=== PATIENT | male | born 1980 | race African-American/Black ===

== ENCOUNTER 2017-09-24 23:23 | Emergency (ER) | payer SELFPAY ==
[2017-09-25] MEDS ORDERED: ONDANSETRON 4 MG TAB.RAPDIS PO ONE (01:28)
--- NOTE | 2017-09-25 01:30 | ER Document Report ---
ED General - General Chief Complaint: Sore Throat Stated Complaint: SORE THROAT,ABDOMINAL PAIN Time Seen by Provider: 09/25/17 01:21 TRAVEL OUTSIDE OF THE [place] IN LAST 30 DAYS: No - HPI Notes: 36-year-old male who presents with concern for strep throat. He describes several days of cough, sore throat not feeling well. Some associated nausea that he attributes to being exposed to something at work. No current fever. Burning pain, nonradiating. has similar symptoms. No other modifying factors, no other associated symptoms, no other provocative or palliative factors. - Related Data Allergies/Adverse Reactions: No Known Allergies Allergy (Unverified 09/24/17 23:25) Past Medical History - Social History Smoking Status: Never Smoker Family History: Reviewed & Not Pertinent - Medical History Medical History: Negative Review of Systems - Review of Systems Notes: Review of systems as in the history of present illness, otherwise negative. Physical Exam - Vital signs Vitals: Temp Pulse Resp BP Pulse Ox 98.6 F 71 20 152/82 H 96 09/24/17 23:53 09/24/17 23:53 09/24/17 23:53 09/24/17 23:53 09/24/17 23:53 - Notes Notes: This is a well-appearing male who presents with likely viral upper restaurant infection and illness. He has a Centor score of 0 out of 4 making streptococcal pharyngitis unlikely. We will treat him symptomatically with Zofran, prescription for the same, outpatient follow-up. Tylenol as needed. Course - Vital Signs Vital signs: Temp Pulse Resp BP Pulse Ox 98.6 F 71 20 152/82 H 96 09/24/17 23:53 09/24/17 23:53 09/24/17 23:53 09/24/17 23:53 09/24/17 23:53 Discharge - Discharge Clinical Impression: URI (upper respiratory infection) Qualifiers: URI type: unspecified viral URI Qualified Code(s): J06.9 - Acute upper respiratory infection, unspecified Condition: Good Disposition: HOME, SELF-CARE Instructions: Upper Respiratory Illness ([facility]) Prescriptions: Ondansetron [Zofran Odt 4 mg Tablet] 1 - 2 tab PO Q4H PRN #15 tab.rapdis PRN Reason: For Nausea/Vomiting
[2017-09-25 01:42] VITALS: BP 127/85
== END 2017-09-25 01:42 | disposition home or self-care (01) ==
LOC: ER 23:23
DX: J06.9 Acute upper respiratory infection, unspecified (principal); J02.9 Acute pharyngitis, unspecified; R11.0 Nausea
CPT/HCPCS: 99282; S0119

== ENCOUNTER 2018-04-18 07:21 | Emergency (ER) | payer OTHER ==
[2018-04-18] MEDS ORDERED: HYDROCODONE/ACETAMINOPHEN 5-325 MG TABLET PO ONE (08:17)
[2018-04-18] MEDS ORDERED: IBUPROFEN 800 MG TABLET PO ONE (08:17)
--- NOTE | 2018-04-18 08:33 | ER Document Report ---
HPI - HPI Patient complains to provider of: Right hand pain Onset: Other - 2 days Onset/Duration: Persistent Quality of pain: Achy Pain Level: 4 Context: Patient presents complaining of right hand pain for the past 2 days. 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 Patient states that he did accidentally hit his hand on a metal tray on 2 separate episodes 2 days ago. Patient complains of persistent pain. Associated Symptoms: Other - Right hand pain Exacerbated by: Movement Relieved by: Remaining still Similar symptoms previously: No Recently seen / treated by doctor: No - ROS ROS below otherwise negative: Yes Systems Reviewed and Negative: Yes All other systems reviewed and negative - NEURO Neurology: DENIES: Weakness - MUSCULOSKELETAL Musculoskeletal: REPORTS: Extremity pain - right wrist - DERM Skin Color: Normal Skin Problems: None Past Medical History - General Information source: Patient - Social History Smoking Status: Never Smoker Frequency of alcohol use: Social Drug Abuse: None Occupation: [employer] processing plant Lives with: Spouse/Significant other Family History: Reviewed & Not Pertinent Patient has suicidal ideation: No Patient has homicidal ideation: No - Medical History Medical History: Negative Renal/ Medical History: Denies: Hx Peritoneal Dialysis Surgical Hx: Negative Vertical Provider Document - CONSTITUTIONAL Agree With Documented VS: Yes Exam Limitations: No Limitations General Appearance: WD/WN, No Apparent Distress - INFECTION CONTROL TRAVEL OUTSIDE OF THE [place] IN LAST 30 DAYS: No - HEENT HEENT: Atraumatic, Normocephalic - NECK Neck: Normal Inspection - RESPIRATORY Respiratory: No Respiratory Distress - CARDIOVASCULAR Pulses: Normal: Radial - MUSCULOSKELETAL/EXTREMETIES Musculoskeletal/Extremeties: MAEW, Tender - Right hand tenderness over right fifth metacarpal and right first CMC joint, no deformity, no edema, no calor, no tendon deficit. negative: Eccymosis - NEURO Level of Consciousness: Awake, Alert, Appropriate Motor/Sensory: No Motor Deficit, No Sensory Deficit - DERM Integumentary: Warm, Dry, No Rash Course - Re-evaluation Re-evalutation: 04/18/18 08:31 Patient presents with likely overuse injury given the nature of his employment. Patient encouraged to follow-up with hand surgeon for any persistent pain or problems. Patient does have his own splint and Kaden wrap that immobilizes the hand and thumb similar to a thumb spica, patient with good alignment and is neurologically intact with use of his personal splint. - Vital Signs Vital signs: Temp Pulse Resp BP Pulse Ox 98.2 F 61 16 140/84 H 97 04/18/18 07:29 04/18/18 07:29 04/18/18 07:29 04/18/18 07:29 04/18/18 07:29 - Diagnostic Test Radiology reviewed: Pending, Image reviewed Discharge - Discharge Clinical Impression: Overuse injury Sprain of right hand Qualifiers: Encounter type: initial encounter Qualified Code(s): S63.91XA - Sprain of unspecified part of right wrist and hand, initial encounter Condition: Stable Disposition: HOME, SELF-CARE Instructions: Anti-Inflammatory Medication ([facility]), Overuse Syndrome ([facility]), Temporary Splint ([facility]) Additional Instructions: Return immediately for any new or worsening symptoms Followup with your primary care provider, call tomorrow to make a followup appointment Follow-up with orthopedic hand specialist for any persistent pain or problems Prescriptions: Naproxen [Naprosyn 250 Nmg Tablet] 1 tab PO BID #14 tablet Forms: Return to Work Referrals: BENEDICT RODRIGUEZ DO [ACTIVE STAFF] - Follow up as needed
--- NOTE | 2018-04-18 08:39 | RADIOLOGY REPORT (SQ) ---
EXAM DESCRIPTION: HAND RIGHT 3 VIEWS COMPLETED DATE/TIME: 04/18/2018 8:23 am REASON FOR STUDY: hit hand on metal tray x 2 COMPARISON: None. EXAM PARAMETERS: NUMBER OF VIEWS: Three views. TECHNIQUE: AP, lateral and oblique radiographic images acquired of the right hand. LIMITATIONS: None. FINDINGS: MINERALIZATION: Normal. BONES: No acute fracture or dislocation. No worrisome bone lesions. JOINTS: No effusions. SOFT TISSUES: No soft tissue swelling. No foreign body. OTHER: No other significant finding. IMPRESSION: NEGATIVE STUDY OF THE RIGHT HAND. NO RADIOGRAPHIC EVIDENCE OF ACUTE INJURY. TECHNICAL DOCUMENTATION: JOB ID: [id number] [employer]- All Rights Reserved Reading location - IP/workstation name: [email or web address]
[2018-04-18 08:50] VITALS: BP 132/75
== END 2018-04-18 08:50 | disposition home or self-care (01) ==
LOC: ER 07:21
DX: S63.91XA Sprain of unspecified part of right wrist and hand, initial encounter (principal); W22.09XA Striking against other stationary object, initial encounter; Y99.0 Civilian activity done for income or pay
CPT/HCPCS: 99283

== ENCOUNTER 2019-08-06 11:14 | Emergency (ER) | payer SELFPAY ==
[2019-08-06] MEDS ORDERED: LIDOCAINE 5% (700 MG) TRANSDERMAL ADH..PATCH TP ONE (11:38)
[2019-08-06] MEDS ORDERED: KETOROLAC TROMETHAMINE INJ/PF 30 MG/1 ML SDV IM ONE (11:38)
--- NOTE | 2019-08-06 12:19 | RADIOLOGY REPORT (SQ) ---
EXAM DESCRIPTION: L SPINE WHOLE COMPLETED DATE/TIME: 08/06/2019 11:59 am REASON FOR STUDY: Low back pain after lifting heavy object COMPARISON: None. NUMBER OF VIEWS: Five views including obliques. TECHNIQUE: AP, lateral, oblique, and sacral radiographic images acquired of the lumbar spine. LIMITATIONS: None. FINDINGS: MINERALIZATION: Normal. SEGMENTATION: Normal. No transitional anatomy. ALIGNMENT: Normal. VERTEBRAE: Maintained height. No fracture or worrisome bone lesion. DISCS: Preserved height. No significant osteophytes or end plate irregularity. POSTERIOR ELEMENTS: Pedicles and facets are intact. No pars defect or posterior arch defects. HARDWARE: None in the spine. PARASPINAL SOFT TISSUES: Normal. PELVIS: Intact as visualized. No fractures or worrisome bone lesions. SI joints intact. OTHER: No other significant finding. IMPRESSION: No significant findings. TECHNICAL DOCUMENTATION: JOB ID: [id number] [place]-72 2010 [employer]- All Rights Reserved Reading location - IP/workstation name: [employer]
--- NOTE | 2019-08-06 12:22 | ER Document Report ---
HPI - HPI Time Seen by Provider: 08/06/19 11:34 Pain Level: 4 Context: Patient is a 38-year-old male presents emergency department with a chief complaint of low back pain. 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 Patient reports this occurred 4 days ago. Patient denies a specific injury but associates the pain with the heavy lifting. Patient reports movement and walking make the pain worse. Patient reports he has not taken anything [id number] for his symptoms. Patient denies radiation of pain down his legs, numbness or tingling down his legs loss of bowel or bladder. Patient reports this is slightly relieved with rest. - EENT EENT: DENIES: Sore Throat, Ear Pain, Eye problems - NEURO Neurology: DENIES: Headache, Weakness, Vision blurred, Dizzinesss / Vertigo - CARDIOVASCULAR Cardiovascular: DENIES: Chest pain - RESPIRATORY Respiratory: DENIES: Trouble Breathing, Coughing - GASTROINTESTINAL Gastrointestinal: DENIES: Abdominal Pain, Black / Bloody Stools - URINARY Urinary: DENIES: Dysuria, Urgency, Frequency - MUSCULOSKELETAL Musculoskeletal: REPORTS: Extremity pain Past Medical History - General Information source: Patient - Social History Smoking Status: Never Smoker Frequency of alcohol use: Rare Drug Abuse: None Lives with: Family Family History: Reviewed & Not Pertinent Patient has suicidal ideation: No Patient has homicidal ideation: No - Past Medical History Cardiac Medical History: Reports: None Pulmonary Medical History: Reports: None EENT Medical History: Reports: None Neurological Medical History: Reports: None Endocrine Medical History: Reports: None Renal/ Medical History: Reports: None. Denies: Hx Peritoneal Dialysis Malignancy Medical History: Reports None GI Medical History: Reports: None Musculoskeletal Medical History: Reports None Skin Medical History: Reports None Psychiatric Medical History: Reports: None Traumatic Medical History: Reports: None Infectious Medical History: Reports: None Surgical Hx: Negative Vertical Provider Document - CONSTITUTIONAL Agree With Documented VS: Yes Exam Limitations: No Limitations General Appearance: No Apparent Distress - INFECTION CONTROL TRAVEL OUTSIDE OF THE [place] IN LAST 30 DAYS: No - HEENT HEENT: Atraumatic, Normal ENT Exam, Normocephalic, PERRLA - NECK Neck: Normal Inspection - RESPIRATORY Respiratory: Breath Sounds Normal, No Respiratory Distress - CARDIOVASCULAR Cardiovascular: Regular Rate, Regular Rhythm - GI/ABDOMEN Gastrointestinal: Abdomen Soft, Abdomen Non-Tender, Normal Bowel Sounds - BACK Back: Normal Inspection Notes: Patient does not have cervical or thoracic midline tenderness with palpation. Patient does have a lumbar midline tenderness with palpation. Patient also has lumbar paraspinal midline tenderness. - MUSCULOSKELETAL/EXTREMETIES Musculoskeletal/Extremeties: FROM - NEURO Level of Consciousness: Awake, Alert, Appropriate Motor/Sensory: No Motor Deficit, No Sensory Deficit Deep Tendon Reflexes: 2+ - DERM Integumentary: Warm, Dry, No Rash Course - Vital Signs Vital signs: Temp Pulse Resp BP Pulse Ox 98.1 F 69 20 136/75 H 95 08/06/19 11:18 08/06/19 11:18 08/06/19 11:18 08/06/19 11:36 08/06/19 11:18 - Diagnostic Test Radiology reviewed: Reports reviewed Radiology results interpreted by me: 08/06/19 12:48 Lumbar Spine X-Ray 08/06/19 11:37 IMPRESSION: No significant findings. Discharge - Discharge Clinical Impression: Low back pain Qualifiers: Chronicity: acute Back pain laterality: midline Sciatica presence: without sciatica Qualified Code(s): M54.5 - Low back pain Condition: Stable Disposition: HOME, SELF-CARE Additional Instructions: *Today was in the emergency department for low back pain. We did obtain an x- ray of your lumbar spine which is your lower back and it did not show any acute bony abnormality. Your symptoms are most likely musculoskeletal related as this did occur after lifting cement bags and heavy posts for work. Please rest over the next few days. I am prescribing you an anti-inflammatory as well as a muscle relaxer. Do not drive or operate heavy machinery while on this medication. Low Back Pain Three out of every four people will have an episode of disabling back pain during their lifetime. Most commonly the pain is due to straining of the muscles and ligaments in the low back. Usual treatment includes: (1) Rest on a firm surface. Avoid lying on your stomach. (2) Ice pack the painful area. After a few days, gentle heat may be used intermittently to relax the area, or ice packs can be continued. (3) Medication may be needed -- muscle relaxers and antiinflammatory medicines are commonly used. (4) As the back improves, exercises are prescribed to strengthen the back and abdominal muscles. Your doctor will advise you on the proper care for your back at each stage in your recovery. You may be better in a few days -- or healing may take several weeks. If new symptoms of a "herniated disc" (radiation of pain, numbness, or tingling down the back of the leg or weakness in the leg) occur, you should be re-examined. Further testing may be necessary. Prescriptions: Naproxen 500 mg PO BID PRN #14 tablet PRN Reason: Methocarbamol [Robaxin 500 mg Tablet] 1,000 mg PO TID #21 tablet Forms: Return to Work
[2019-08-06 12:39] VITALS: BP 136/69
== END 2019-08-06 12:36 | disposition home or self-care (01) ==
LOC: ER 11:14
DX: M54.5 Low back pain (principal); X50.0XXA Overexertion from strenuous movement or load, initial encounter; Y93.H3 Activity, building and construction; Y99.0 Civilian activity done for income or pay
CPT/HCPCS: 72110